=== PATIENT | female | born 1960 | race Two or more races ===

== ENCOUNTER → 2025-01-27 | Outpatient (CLI) | payer OTHER ==
[~2025-01-27] MED LIST: ENALAPRIL MALEA10 MG PO; LEVSIN/SL0.125 MG SL; PREVACID30 MG PO
== END | disposition home or self-care (01) ==
LOC: NUCLEAR 08:50
DX: G31.84 Mild cognitive impairment of uncertain or unknown etiology (principal)
CPT/HCPCS: 78803; A9557